=== PATIENT | female | born 1995 | race Caucasian/White ===

== ENCOUNTER → 2024-10-29 12:07 | Outpatient (REF) | payer BC, SELFPAY ==
[2024-11-03 01:44] LABS: Chlamydia trachomatis,ThinPrep Negative (Negative); Neisseria gonorrhoeae,ThinPrep Negative (Negative); Specimen Source Cervical/Vag
[2024-11-03 04:26] LABS: HPV, High Risk Not Detected; HPV, High Risk Source Cervical
== END ==
LOC: CPAP 12:07
PROVIDERS: ATTENDING PHYSICIAN Nurse Practitioner Family
DX: Z34.90 Encounter for supervision of normal pregnancy, unspecified, unspecified trimester (principal); Z11.3 Encounter for screening for infections with a predominantly sexual mode of transmission; Z11.51 Encounter for screening for human papillomavirus (HPV)
CPT/HCPCS: 87491; 87591; 87624

== ENCOUNTER → 2024-10-29 12:57 | Outpatient (REF) | payer BC, SELFPAY ==
[2024-10-29 14:36] LABS: % Basophils 1.4 % (0-2); % Eosinophils 1.5 % (0-6); % Immature Granulocytes 0.3 % (0-0.5); % Lymphocytes 31.1 % (20.5-51.1); % Monocytes 10.5 % (1.7-9.3); % Neutrophils 55.2 % (42.2-75.2); Absolute Basophils 0.1 10^3/uL (0-0.2); Absolute Eosinophils 0.1 10^3/uL (0-0.7); Absolute Lymphocytes 2.9 10^3/uL (1.2-3.4); Absolute Neutrophils 5.1 10^3/uL (1.4-6.5); Hematocrit 41.8 % (37.0-47.0); Hemoglobin 15.1 g/dL (12.0-16.0); Mean Corp Hgb Conc. 36.1 g/dL (33.0-37.0); Mean Corpuscular Hgb 32.1 pg (27.0-31.0); Mean Corpuscular Volume 88.9 fL (81.0-99.0); Mean Platelet Volume 8.8 fL (7.4-10.4); Nucleated Red Blood Cells % 0 %; Platelet Count 593 10^3/uL (130-400); Red Cell Dist. Width 13.1 % (11.5-14.5); White Blood Cell Count 9.2 10^3/uL (4.8-10.8)
[2024-10-29 15:30] LABS: Hepatitis B Surface Antigen Negative (Negative)
[2024-10-29 15:37] LABS: Urine Albumin Negative (Neg - Trace); Urine Bilirubin Negative (Negative); Urine Character Clear (Clear); Urine Color Yellow; Urine Glucose Negative (Negative); Urine Ketone Negative (Negative); Urine Leukocyte Negative (Negative); Urine Nitrite Negative (Negative); Urine Occult Blood Negative (Negative); Urine Urobilinogen Negative (Neg - 1+)
[2024-10-29 15:41] LABS: HIV Combo Negative (Negative)
[2024-10-29 15:48] LABS: Hepatitis B Core Ab, Total Negative (Negative); Hepatitis C Antibody Negative (Negative)
[2024-10-29 16:14] LABS: Rubella Low Positive
[2024-10-29 17:02] LABS: Hepatitis B Surface Antibody Indeterminate
[2024-10-30 10:13] LABS: Glycohemoglobin (HgbA1c) 4.5 % (4.0-5.6)
== END ==
LOC: REG 12:57
PROVIDERS: ATTENDING PHYSICIAN Nurse Practitioner Family; FAMILY PHYSICIAN Hospitalist
DX: Z32.01 Encounter for pregnancy test, result positive (principal)
CPT/HCPCS: 36415; 81003; 83036; 84702; 85025; 86704; 86706; 86762; 86780; 86803; 86850; 86900; 86901; 87086; 87340; 87389

== ENCOUNTER → 2024-11-01 14:20 | Outpatient (REF) | payer BC, SELFPAY | LOC: REG 14:20 | PROVIDERS: ATTENDING PHYSICIAN Nurse Practitioner Family; FAMILY PHYSICIAN Hospitalist | DX: Z32.01 Encounter for pregnancy test, result positive (principal) | CPT/HCPCS: 36415; 84702 ==

== ENCOUNTER → 2024-12-26 08:54 | Outpatient (REF) | payer BC, SELFPAY | LOC: PNTC 08:54 | PROVIDERS: ATTENDING PHYSICIAN Obstetrics & Gynecology | DX: Z36.0 Encounter for antenatal screening for chromosomal anomalies (principal); Z36.82 Encounter for antenatal screening for nuchal translucency | CPT/HCPCS: 36415; 76801; 76813; 81420 ==

== ENCOUNTER → 2025-01-15 13:30 | Outpatient (REF) | payer BC, SELFPAY | LOC: PNTC 13:30 | PROVIDERS: ATTENDING PHYSICIAN Obstetrics & Gynecology | DX: O99.210 Obesity complicating pregnancy, unspecified trimester (principal); O99.12 Other diseases of the blood and blood-forming organs and certain disorders involving the immune mechanism complicating childbirth | CPT/HCPCS: 76805 ==

== ENCOUNTER → 2025-02-12 13:23 | Outpatient (REF) | payer BC, SELFPAY | LOC: PNTC 13:23 | PROVIDERS: ATTENDING PHYSICIAN Obstetrics & Gynecology | DX: O99.12 Other diseases of the blood and blood-forming organs and certain disorders involving the immune mechanism complicating childbirth (principal); O99.210 Obesity complicating pregnancy, unspecified trimester | CPT/HCPCS: 76811; 76817 ==

== ENCOUNTER → 2025-04-15 10:54 | Outpatient (REF) | payer BC, SELFPAY ==
[2025-04-15 09:37] LABS: Hematocrit 40.5 % (37.0-47.0); Hemoglobin 14.1 g/dL (12.0-16.0); Mean Corp Hgb Conc. 34.8 g/dL (33.0-37.0); Mean Corpuscular Volume 96.7 fL (81.0-99.0); Nucleated Red Blood Cells % 0.2 %; Platelet Count 546 10^3/uL (130-400); Red Cell Dist. Width 14.1 % (11.5-14.5)
[2025-04-15 14:48] LABS: Syphilis/T. pallidum Ab Reflex Negative (Negative)
== END ==
LOC: PNTC 10:54
PROVIDERS: ATTENDING PHYSICIAN Obstetrics & Gynecology; FAMILY PHYSICIAN Hospitalist; OTHER PHYSICIAN Obstetrics & Gynecology
DX: D58.0 Hereditary spherocytosis (principal); Z34.93 Encounter for supervision of normal pregnancy, unspecified, third trimester; O99.213 Obesity complicating pregnancy, third trimester; E66.9 Obesity, unspecified; O99.113 Other diseases of the blood and blood-forming organs and certain disorders involving the immune mechanism complicating pregnancy, third trimester; O35.5XX0 Maternal care for (suspected) damage to fetus by drugs, not applicable or unspecified
CPT/HCPCS: 36415; 76816; 85025; 86780

== ENCOUNTER → 2025-05-01 14:06 | Outpatient (REF) | payer BC, SELFPAY | LOC: PNTC 14:06 | PROVIDERS: ATTENDING PHYSICIAN Obstetrics & Gynecology | DX: O36.8190 Decreased fetal movements, unspecified trimester, not applicable or unspecified (principal) | CPT/HCPCS: 59025; 76815 ==

== ENCOUNTER → 2025-05-22 11:33 | Outpatient (REF) | payer BC, SELFPAY | LOC: PNTC 11:33 | PROVIDERS: ATTENDING PHYSICIAN Student in an Organized Health Care Education/Training Program | DX: O99.210 Obesity complicating pregnancy, unspecified trimester (principal) | CPT/HCPCS: 59025; 76816 ==

== ENCOUNTER → 2025-05-29 15:03 | Outpatient (REF) | payer BC, SELFPAY | LOC: PNTC 15:03 | PROVIDERS: ATTENDING PHYSICIAN Obstetrics & Gynecology | DX: O99.213 Obesity complicating pregnancy, third trimester (principal); O99.323 Drug use complicating pregnancy, third trimester | CPT/HCPCS: 59025 ==

== ENCOUNTER → 2025-06-05 12:58 | Outpatient (REF) | payer BC, SELFPAY | LOC: PNTC 12:58 | PROVIDERS: ATTENDING PHYSICIAN Obstetrics & Gynecology | DX: O99.213 Obesity complicating pregnancy, third trimester (principal) | CPT/HCPCS: 59025; 76815 ==

== ENCOUNTER → 2025-06-05 14:59 | Outpatient (REF) | payer BC, SELFPAY | LOC: CLAB 14:59 | PROVIDERS: ATTENDING PHYSICIAN Obstetrics & Gynecology | DX: Z36.85 Encounter for antenatal screening for Streptococcus B (principal); Z34.83 Encounter for supervision of other normal pregnancy, third trimester | CPT/HCPCS: 87070 ==

== ENCOUNTER → 2025-06-11 11:34 | Outpatient (REF) | payer BC, SELFPAY | LOC: PNTC 11:34 | PROVIDERS: ATTENDING PHYSICIAN Obstetrics & Gynecology | DX: O99.213 Obesity complicating pregnancy, third trimester (principal); E66.9 Obesity, unspecified; O35.5XX0 Maternal care for (suspected) damage to fetus by drugs, not applicable or unspecified; D58.0 Hereditary spherocytosis | CPT/HCPCS: 36415; 59025; 76815 ==

== ENCOUNTER → 2025-06-19 11:30 | Outpatient (REF) | payer BC, SELFPAY | LOC: PNTC 11:30 | PROVIDERS: ATTENDING PHYSICIAN Obstetrics & Gynecology | DX: O99.213 Obesity complicating pregnancy, third trimester (principal); E66.9 Obesity, unspecified; O35.5XX0 Maternal care for (suspected) damage to fetus by drugs, not applicable or unspecified; D58.0 Hereditary spherocytosis | CPT/HCPCS: 76816 ==

== ENCOUNTER 2025-06-29 19:23 | Inpatient (IN) | payer BC, SELFPAY ==
[2025-06-29 20:30] VITALS: BP 137/71; BMI 36.7
[2025-06-29 20:38] LABS: Hematocrit 36.7 % (37.0-47.0); Hemoglobin 13.2 g/dL (12.0-16.0); Mean Corp Hgb Conc. 36.0 g/dL (33.0-37.0); Mean Corpuscular Volume 88.9 fL (81.0-99.0); Nucleated Red Blood Cells % 0.1 %; Platelet Count 520 10^3/uL (130-400); Red Cell Dist. Width 13.6 % (11.5-14.5)
[2025-06-29] MEDS: CYTOTEC 25 MICROGRAM VAG (20:53)
[2025-06-29] MEDS: EFFEXOR 50 MG PO (22:56)
[2025-06-30] MEDS: LR 1000 IV (02:11)
[2025-06-30] MEDS: CYTOTEC 50 MICROGRAM PO (02:56)
[2025-06-30] MEDS: STADOL 1 MG IV ×3 (03:27→13:25)
[2025-06-30] MEDS: FENTANYL/BUPIVACAINE 100 EPIDURAL (06:54)
[2025-06-30] MEDS: SUBLIMAZE 100 MCG EPIDURAL (06:57)
[2025-06-30] MEDS: EFFEXOR PO (08:32)
[2025-06-30] MEDS: PRENATAL PLUS PO (08:32)
[2025-06-30] MEDS: PITOCIN 30 UNITS/NSS 500 ML IV (11:17)
[2025-06-30] MEDS: METHERGINE INJECTION 0.2 MG IM (12:47)
[2025-06-30] MEDS: CYTOTEC 800 MCG SL (13:26)
[2025-06-30] MEDS: TRANEXAMIC ACID 100 IV (13:31)
[2025-06-30 13:51] LABS: Hematocrit 37.9 % (37.0-47.0); Hemoglobin 13.3 g/dL (12.0-16.0); Platelet Count 496 10^3/uL (130-400)
[2025-06-30 14:00] LABS: APTT 25.6 Sec (23.4-35.0); INR 1.07; PT 14.0 Sec (11.4-14.6)
[2025-06-30 15:07] LABS: Fibrinogen 508 MG/DL (199-459)
[2025-06-30 15:24] VITALS: BP 105/67
[2025-06-30 15:25] VITALS: BP 137/71
[2025-06-30 15:35] VITALS: BP 90/63
[2025-06-30] MEDS: ZOFRAN 4 MG IV (15:35)
[2025-06-30 15:39] VITALS: BP 99/79
[2025-06-30 15:45] VITALS: BP 105/71
[2025-06-30] MEDS: DILAUDID 0.5 MG IV (15:54)
[2025-06-30 16:00] VITALS: BP 108/74
[2025-06-30 16:01] LABS: Hematocrit 33.5 % (37.0-47.0); Hemoglobin 11.9 g/dL (12.0-16.0); Platelet Count 454 10^3/uL (130-400)
[2025-06-30] MEDS: TYLENOL 650 MG PO (20:07)
[2025-06-30] MEDS: COLACE 100 MG PO (20:07)
[2025-06-30] MEDS: EFFEXOR 50 MG PO (21:48)
[2025-06-30] MEDS: MOTRIN 600 MG PO (21:48)
[2025-07-01] MEDS: MOTRIN 600 MG PO ×3 (04:38→20:50)
[2025-07-01] MEDS: TYLENOL 650 MG PO ×3 (04:38→20:50)
[2025-07-01 06:58] LABS: Hematocrit 26.4 % (37.0-47.0); Hemoglobin 8.8 g/dL (12.0-16.0)
[2025-07-01] MEDS: COLACE 100 MG PO ×2 (09:00→20:53)
[2025-07-01] MEDS: PRENATAL PLUS 1 TABLET PO (09:00)
[2025-07-01] MEDS: EFFEXOR 50 MG PO ×2 (09:00→20:50)
[2025-07-01 14:28] LABS: Hematocrit 25.2 % (37.0-47.0); Hemoglobin 9.0 g/dL (12.0-16.0)
[2025-07-01 14:55] LABS: Iron 58 ug/dl (37-170)
[2025-07-01] MEDS: FERRLECIT 110 MG IV (14:57)
[2025-07-01 15:04] LABS: Total Iron Binding Capacity 432 ug/dl (265-497)
[2025-07-01 15:09] LABS: Syphilis/T. pallidum Ab Reflex Negative (Negative)
[2025-07-01 15:31] LABS: Ferritin 15.1 ng/ml (6.24-137)
[2025-07-02] MEDS: EFFEXOR 50 MG PO (08:08)
[2025-07-02] MEDS: PRENATAL PLUS 1 TABLET PO ×2 (08:08)
[2025-07-02] MEDS: COLACE 100 MG PO (08:09)
[2025-07-04 12:18] LABS: Transferrin 323 mg/dL (200-360)
== END 2025-07-02 16:58 | disposition home or self-care (01) | DRG 768 ==
LOC: LDRP 19:23
PROVIDERS: Obstetrics & Gynecology; Student in an Organized Health Care Education/Training Program; ADMITTING PHYSICIAN Student in an Organized Health Care Education/Training Program; FAMILY PHYSICIAN Hospitalist
PROC: 3E0P7VZ Introduction of Hormone into Female Reproductive, Via Natural or Artificial Opening (ICD-10-PCS; 2025-06-29)
PROC: 10D17ZZ Extraction of Products of Conception, Retained, Via Natural or Artificial Opening (ICD-10-PCS; 2025-06-30)
PROC: 10E0XZZ Delivery of Products of Conception, External Approach (ICD-10-PCS; 2025-06-30)
PROC: 10907ZC Drainage of Amniotic Fluid, Therapeutic from Products of Conception, Via Natural or Artificial Opening (ICD-10-PCS; 2025-06-30)
PROC: 0W3R7ZZ Control Bleeding in Genitourinary Tract, Via Natural or Artificial Opening (ICD-10-PCS; 2025-06-30)
DX: O99.12 Other diseases of the blood and blood-forming organs and certain disorders involving the immune mechanism complicating childbirth (principal); Z37.0 Single live birth; O72.1 Other immediate postpartum hemorrhage; D75.839 Thrombocytosis, unspecified; D58.0 Hereditary spherocytosis; O70.0 First degree perineal laceration during delivery; O90.81 Anemia of the puerperium; D50.0 Iron deficiency anemia secondary to blood loss (chronic)
CPT/HCPCS: 36415; 76998; 82728; 83540; 83550; 84466; 85014; 85018; 85025; 85049; 85384; 85610; 85730; 86780; 86850; 86900; 86901; 86920; 86922; 88307; J2916